=== PATIENT | female | born 1950 | race Caucasian/White ===

== ENCOUNTER → 2018-03-13 | Outpatient (CLI) | payer BC ==
[~2018-03-13] MED LIST: ASPI-515 PO; BIOT1CAP3 PO; CLOP75TA PO; FENO145T30 PO; FLAX100029 PO; FURO-93 PO; GABA300C10 PO; HYDR-3237 PO; HYDR-3653 PO; KETO10TA PO; LEVO75TA5 PO; METO25TA35 PO; METO25TA91 PO; OMEG1CAP25 PO; POTA20TA14; RAMI2.5C2 PO; REGADENOSON 0.4 MG/5 ML SYRINGE ONE; SENN1TAB28; SERT100T PO; SERT100T5 PO; SIMV10TA PO; SIMV20TA3 PO; TRAZ-136 PO
== END | disposition home or self-care (01) ==
LOC: CFH 12:28
PROVIDERS: ATTEND Internal Medicine Cardiovascular Disease
DX: I25.10 Atherosclerotic heart disease of native coronary artery without angina pectoris (principal); I10 Essential (primary) hypertension; R07.9 Chest pain, unspecified; R00.1 Bradycardia, unspecified; Z95.1 Presence of aortocoronary bypass graft
CPT/HCPCS: 78452; 93017; A9502; J2785

== ENCOUNTER 2018-04-19 09:29 | Inpatient (IN) | payer BC ==
[~2018-04-19] VITALS: Ht 167.6 cm; Wt 68.8 kg
[~2018-04-19 09:29] MED LIST changes: -REGADENOSON 0.4 MG/5 ML SYRINGE ONE; -TRAZ-136 PO; +TRAZ50TA66 PO
[2018-04-19] MEDS ORDERED: SODIUM CHLORIDE 0.9% 1,000 ML IV ONE (10:05)
[2018-04-19] MEDS ORDERED: CHOL2000 PO (10:21)
[2018-04-19] MEDS ORDERED: OMEG-123 PO (10:21)
[2018-04-19] MEDS ORDERED: CELE200C PO (10:21)
[2018-04-19] MEDS ORDERED: ALPR-475 PO (10:21)
[2018-04-19] MEDS ORDERED: PROM25TA10 PO (10:21)
[2018-04-19] MEDS: PLEASE ENTER HEIGHT AND WEIGHT MC SCH ×2 (10:30→18:30)
[2018-04-19 11:31] LABS: BASOPHILS # (AUTO) 0.01 x10^3/uL (0-0.1); BASOPHILS % (AUTO) 0 % (0-1); EOSINOPHILS # (AUTO) 0.05 x10^3/uL (0-0.4); EOSINOPHILS % (AUTO) 1 % (1-7); LYMPHOCYTES # (AUTO) 1.29 x10^3/uL (1-3.4); LYMPHOCYTES % (AUTO) 26 % (22-44); MD NO; MEAN CORPUSCULAR HEMOGLOBIN 31.6 pg (27.0-34.8); MEAN CORPUSCULAR HGB CONC 33.2 g/dL (32.4-35.8); MEAN CORPUSCULAR VOLUME 95.4 fL (80-100); MONOCYTES # (AUTO) 0.45 x10^3/uL (0.2-0.8); MONOCYTES % (AUTO) 9 % (2-9); NEUTROPHILS # (AUTO) 3.08 x10^3/uL (1.8-6.8); NEUTROPHILS % (AUTO) 63 % (42-75); PLATELET COUNT 158 x10^3/uL (130-400); RED BLOOD COUNT 4.71 x10^6/uL (3.82-5.3); RED CELL DISTRIBUTION WIDTH 14.8 % (9.6-15.2)
[2018-04-19 11:33] LABS: ANION GAP 4 mmol/L (5-15); CALCIUM 9.6 mg/dL (8.5-10.1); CHLORIDE 108 mmol/L (98-107); CREATININE 1.14 mg/dL (0.55-1.02)
[2018-04-19] MEDS ORDERED: MIDAZOLAM 1 MG/ML, 5ML ONE (11:47)
[2018-04-19] MEDS ORDERED: FENTANYL PF 100 MCG/2ML ONE (11:47)
[2018-04-19] MEDS ORDERED: HEPARIN 1,000 UNITS/ML, 10ML ONE (12:06)
[2018-04-19] MEDS ORDERED: BIVALIRUDIN 250 MG ONE ×2 (12:16→12:47)
[2018-04-19] MEDS ORDERED: TICAGRELOR 90 MG TABLET ONE (12:16)
[2018-04-19] MEDS ORDERED: BIVALIRUDIN 250 MG in DEXTROSE 5% 100 ML IV SCH (12:35)
[2018-04-19] MEDS: SODIUM CHLORIDE 0.9% 1,000 ML IV SCH ×2 (12:35→20:34)
[2018-04-19] MEDS ORDERED: ASPIRIN 325 MG TABLET EC ONE (12:38)
[2018-04-19] MEDS ORDERED: ZOLPIDEM 5MG TABLET PO PRN (13:00)
[2018-04-19] MEDS ORDERED: ONDANSETRON 2MG/ML, 2ML IVPush PRN (13:00)
[2018-04-19] MEDS ORDERED: ACETAMINOPHEN 325 MG TABLET ONE (13:04)
[2018-04-19] MEDS: ACETAMINOPHEN 325 MG TABLET PO PRN ×2 (13:07→17:58)
[2018-04-19] MEDS ORDERED: PROMETHAZINE 25MG TABLET PO PRN (15:30)
[2018-04-19 19:03] VITALS: BP 132/77
[2018-04-19 20:21] VITALS: BP 121/65
[2018-04-19] MEDS: TICAGRELOR 90 MG TABLET PO SCH (20:24)
[2018-04-19] MEDS: METOPROLOL TARTRATE 25 MG TABLET PO SCH (20:25)
[2018-04-19] MEDS ORDERED: TRAZODONE 50MG TABLET PO SCH (21:00)
[2018-04-19] MEDS ORDERED: SIMVASTATIN 20 MG TABLET PO SCH (21:00)
[2018-04-20 00:53] VITALS: BP 108/71
[2018-04-20] MEDS: PLEASE ENTER HEIGHT AND WEIGHT MC SCH (02:30)
[2018-04-20] MEDS: SODIUM CHLORIDE 0.9% 1,000 ML IV SCH (03:51)
[2018-04-20] MEDS ORDERED: LEVOTHYROXINE 50 MCG TABLET PO SCH (06:00)
[2018-04-20 07:08] LABS: ANION GAP 8 mmol/L (5-15); CALCIUM 8.6 mg/dL (8.5-10.1); CHLORIDE 109 mmol/L (98-107); CREATININE 1.23 mg/dL (0.55-1.02)
[2018-04-20] MEDS: TICAGRELOR 90 MG TABLET PO SCH (08:35)
[2018-04-20] MEDS: METOPROLOL TARTRATE 25 MG TABLET PO SCH (08:35)
[2018-04-20 08:45] VITALS: BP 126/74
[2018-04-20] MEDS ORDERED: SERTRALINE 100MG TABLET PO SCH (09:00)
[2018-04-20] MEDS ORDERED: OMEGA-3/FISH OIL CAPSULE PO SCH (09:00)
[2018-04-20] MEDS ORDERED: FENOFIBRATE 145 MG TABLET PO SCH (09:00)
[2018-04-20] MEDS ORDERED: CHOLECALCIFEROL 1,000 UNIT TABLET PO SCH (09:00)
[2018-04-20] MEDS ORDERED: ASPIRIN 81 MG TABLET EC PO SCH ×2 (09:00)
[2018-04-20] MEDS ORDERED: TICA90TA PO (09:01)
== END 2018-04-20 10:21 | disposition home or self-care (01) | DRG 247 ==
LOC: CACL 09:29 → ORIP 12:35 → 5SO 14:46 → DCLOUNGE 04-20 10:06
PROVIDERS: ADMIT Internal Medicine Cardiovascular Disease; ATTEND Internal Medicine Cardiovascular Disease
PROC: 027035Z Dilation of Coronary Artery, One Artery with Two Drug-eluting Intraluminal Devices, Percutaneous Approach (ICD-10-PCS; principal; 2018-04-19)
PROC: 4A023N7 Measurement of Cardiac Sampling and Pressure, Left Heart, Percutaneous Approach (ICD-10-PCS; 2018-04-19)
PROC: B2111ZZ Fluoroscopy of Multiple Coronary Arteries using Low Osmolar Contrast (ICD-10-PCS; 2018-04-19)
PROC: B2131ZZ Fluoroscopy of Multiple Coronary Artery Bypass Grafts using Low Osmolar Contrast (ICD-10-PCS; 2018-04-19)
PROC: B2151ZZ Fluoroscopy of Left Heart using Low Osmolar Contrast (ICD-10-PCS; 2018-04-19)
PROC: B2181ZZ Fluoroscopy of Left Internal Mammary Bypass Graft using Low Osmolar Contrast (ICD-10-PCS; 2018-04-19)
DX: I25.719 Atherosclerosis of autologous vein coronary artery bypass graft(s) with unspecified angina pectoris (principal); E03.9 Hypothyroidism, unspecified; E78.5 Hyperlipidemia, unspecified; F32.9 Major depressive disorder, single episode, unspecified; E78.00 Pure hypercholesterolemia, unspecified; F41.9 Anxiety disorder, unspecified; M79.7 Fibromyalgia; I10 Essential (primary) hypertension; R00.1 Bradycardia, unspecified; M19.90 Unspecified osteoarthritis, unspecified site; Z95.1 Presence of aortocoronary bypass graft; Z88.6 Allergy status to analgesic agent; Z88.5 Allergy status to narcotic agent; Z87.891 Personal history of nicotine dependence; Z79.899 Other long term (current) drug therapy
CPT/HCPCS: 36415; 93459; C9600; 80048; 85025; 93005; 99156; 99157; C1760; C1894; G0378; J0583; J1644; J2250; J3010; C1725; C1769; C1874; C1887; Q9967

== ENCOUNTER 2018-05-03 17:41 | Inpatient (IN) | payer MEDICARE, BC ==
[~2018-05-03] VITALS: Ht 167.6 cm; Wt 65.7 kg
[~2018-05-03 17:41] MED LIST changes: +ALPR-475 PO; +CELE200C PO; +CHOL2000 PO; +OMEG-123 PO; +PROM25TA10 PO; +TICA90TA PO
[2018-05-03] MEDS ORDERED: SODIUM CHLORIDE FLUSH 10ML SYR IVF ONE (18:30)
[2018-05-03 19:08] LABS: BASOPHILS # (AUTO) 0.05 x10^3/uL (0-0.1); BASOPHILS % (AUTO) 1 % (0-1); EOSINOPHILS # (AUTO) 0.08 x10^3/uL (0-0.4); EOSINOPHILS % (AUTO) 1 % (1-7); LYMPHOCYTES # (AUTO) 1.47 x10^3/uL (1-3.4); LYMPHOCYTES % (AUTO) 22 % (22-44); MD NO; MEAN CORPUSCULAR HEMOGLOBIN 31.1 pg (27.0-34.8); MEAN CORPUSCULAR HGB CONC 33.6 g/dL (32.4-35.8); MEAN CORPUSCULAR VOLUME 92.6 fL (80-100); MONOCYTES # (AUTO) 0.48 x10^3/uL (0.2-0.8); MONOCYTES % (AUTO) 7 % (2-9); NEUTROPHILS # (AUTO) 4.72 x10^3/uL (1.8-6.8); NEUTROPHILS % (AUTO) 69 % (42-75); PLATELET COUNT 374 x10^3/uL (130-400); RED BLOOD COUNT 3.91 x10^6/uL (3.82-5.3); RED CELL DISTRIBUTION WIDTH 16.3 % (9.6-15.2)
[2018-05-03 19:13] LABS: CHLORIDE 108 mmol/L (98-107)
[2018-05-03 19:14] LABS: ANION GAP 10 mmol/L (5-15); CALCIUM 9.3 mg/dL (8.5-10.1); CREATININE 0.96 mg/dL (0.55-1.02)
[2018-05-03 19:17] LABS: TROPONIN I < 0.015 ng/mL (0.000-0.045)
[2018-05-03 19:23] LABS: INTERNATIONAL NORMALIZED RATIO 1.13 (0.93-1.1); PROTHROMBIN TIME 11.9 Seconds (9.6-11.5)
[2018-05-03] MEDS ORDERED: ONDANSETRON 2MG/ML, 2ML ONE ×2 (19:30→22:46)
[2018-05-03] MEDS ORDERED: MORPHINE SULFATE 4 MG/ML, 1ML ONE ×2 (19:30→22:45)
[2018-05-03] MEDS ORDERED: SODIUM CHLORIDE FLUSH 10ML SYR IVF PRN (20:00)
[2018-05-03 22:34] VITALS: BP 148/84
[2018-05-03] MEDS ORDERED: ONDANSETRON 2MG/ML, 2ML IVPush PRN ×2 (23:00)
[2018-05-03] MEDS ORDERED: hydrALAzine 20 MG/ML, 1ML IVPush PRN (23:00)
[2018-05-03] MEDS ORDERED: DOCUSATE 100 MG CAPSULE PO PRN (23:00)
[2018-05-03] MEDS ORDERED: PROMETHAZINE 25 MG/ML, 1ML IM PRN (23:00)
[2018-05-03] MEDS ORDERED: NITROGLYCERIN 0.4 MG BOTTLE (25 TABS) SL PRN (23:00)
[2018-05-03] MEDS ORDERED: POLYETHYLENE GLYCOL 17 GM PACKET PO PRN (23:00)
[2018-05-03] MEDS ORDERED: ONDANSETRON ODT 4 MG PO PRN (23:00)
[2018-05-03] MEDS ORDERED: BISACODYL 10 MG SUPP PR PRN (23:00)
[2018-05-03] MEDS ORDERED: GABAPENTIN 300 MG CAPSULE PO PRN (23:00)
[2018-05-03] MEDS ORDERED: CYCLOBENZAPRINE 10 MG TABLET PO PRN (23:00)
[2018-05-03] MEDS ORDERED: MORPHINE SULFATE 4 MG/ML, 1ML IVPush PRN (23:00)
[2018-05-03] MEDS ORDERED: HYDROmorphone 2 MG/ML, 1ML IVPush PRN (23:00)
[2018-05-03] MEDS ORDERED: LABETALOL 5MG/ML, 20ML IVPush PRN (23:00)
[2018-05-03] MEDS: METOPROLOL TARTRATE 25 MG TABLET PO SCH (23:30)
[2018-05-03] MEDS ORDERED: PROMETHAZINE 25MG TABLET PO PRN (23:30)
[2018-05-03] MEDS ORDERED: OMNIPAQUE 350 MG/ML, 100ML BOTTLE ONE (23:34)
[2018-05-03 23:36] LABS: FREE T4 (FREE THYROXINE) 1.27 ng/dL (0.76-1.46); TROPONIN I < 0.015 ng/mL (0.000-0.045)
[2018-05-04 00:05] LABS: HEMOGLOBIN A1C 5.1 % (4.2-6.3)
[2018-05-04 00:34] VITALS: BP 123/68
[2018-05-04] MEDS: TICAGRELOR 90 MG TABLET PO SCH ×3 (00:41→20:39)
[2018-05-04] MEDS: TRAZODONE 50MG TABLET PO SCH ×2 (00:42→20:39)
[2018-05-04] MEDS: SIMVASTATIN 20 MG TABLET PO SCH ×2 (00:42→20:39)
[2018-05-04] MEDS: HEPARIN 5,000 UNITS/ML, 1ML SQ SCH ×3 (00:42→16:27)
[2018-05-04] MEDS: ISOSORBIDE MONONITRATE ER 30 MG TABLET PO SCH ×2 (00:42→10:41)
[2018-05-04] MEDS: SODIUM CHLORIDE 0.9% 1,000 ML IV SCH ×2 (00:44→20:40)
[2018-05-04 02:19] LABS: TROPONIN I < 0.015 ng/mL (0.000-0.045)
[2018-05-04 05:25] LABS: BASOPHILS # (AUTO) 0.03 x10^3/uL (0-0.1); BASOPHILS % (AUTO) 0 % (0-1); EOSINOPHILS # (AUTO) 0.15 x10^3/uL (0-0.4); EOSINOPHILS % (AUTO) 2 % (1-7); LYMPHOCYTES # (AUTO) 1.55 x10^3/uL (1-3.4); LYMPHOCYTES % (AUTO) 24 % (22-44); MD NO; MEAN CORPUSCULAR HEMOGLOBIN 31.1 pg (27.0-34.8); MEAN CORPUSCULAR HGB CONC 33.1 g/dL (32.4-35.8); MEAN CORPUSCULAR VOLUME 93.8 fL (80-100); MEAN PLATELET VOLUME 7.2 fL (7.4-10.4); MONOCYTES # (AUTO) 0.45 x10^3/uL (0.2-0.8); MONOCYTES % (AUTO) 7 % (2-9); NEUTROPHILS # (AUTO) 4.29 x10^3/uL (1.8-6.8); NEUTROPHILS % (AUTO) 66 % (42-75); PLATELET COUNT 405 x10^3/uL (130-400); RED BLOOD COUNT 3.71 x10^6/uL (3.82-5.3); RED CELL DISTRIBUTION WIDTH 16.9 % (9.6-15.2)
[2018-05-04 05:27] LABS: ALANINE AMINOTRANSFERASE 29 U/L (12-78); ALBUMIN 2.9 g/dL (3.4-5.0); ANION GAP 7 mmol/L (5-15); CHLORIDE 108 mmol/L (98-107); CHOLESTEROL, TOTAL 107 mg/dL (140-239); CREATININE 1.06 mg/dL (0.55-1.02)
[2018-05-04 05:31] LABS: ALKALINE PHOSPHATASE 74 U/L (45-117); BILIRUBIN,TOTAL 1.7 mg/dL (0.2-1.0); CHOL/HDL RATIO 4.3; HDL CHOL % 23 % (28-40); HDL CHOLESTEROL (DIRECT) 25 mg/dL (40-60); LDL CHOLESTEROL,CALCULATED 60 mg/dL (54-169); LDL/HDL RATIO 2.4 (0.5-3.0); TOTAL PROTEIN 6.6 g/dL (6.4-8.2); TRIGLYCERIDES 108 mg/dL (50-200); TROPONIN I < 0.015 ng/mL (0.000-0.045); VLDL CHOLESTEROL 22 mg/dL (0-25)
[2018-05-04] MEDS ORDERED: ASPIRIN 325 MG TABLET EC PO SCH (06:00)
[2018-05-04 07:35] VITALS: BP 98/60
[2018-05-04 08:42] LABS: TROPONIN I < 0.015 ng/mL (0.000-0.045)
[2018-05-04] MEDS: SERTRALINE 100MG TABLET PO SCH (10:40)
[2018-05-04] MEDS: FENOFIBRATE 145 MG TABLET PO SCH (10:40)
[2018-05-04] MEDS: METOPROLOL TARTRATE 25 MG TABLET PO SCH ×2 (10:40→20:33)
[2018-05-04] MEDS: LEVOTHYROXINE 50 MCG TABLET PO SCH (10:40)
[2018-05-04] MEDS: ACETAMINOPHEN 325 MG TABLET PO PRN ×2 (10:41→20:58)
[2018-05-04] MEDS: CHOLECALCIFEROL 1,000 UNIT TABLET PO SCH (10:41)
[2018-05-04] MEDS: ASPIRIN 81 MG TABLET EC PO SCH (10:41)
[2018-05-04 13:27] VITALS: BP 108/55
[2018-05-04 19:37] VITALS: BP 101/59
[2018-05-05 00:36] VITALS: BP 101/59
[2018-05-05] MEDS: HEPARIN 5,000 UNITS/ML, 1ML SQ SCH ×2 (01:09→09:41)
[2018-05-05 05:53] LABS: BASOPHILS # (AUTO) 0.02 x10^3/uL (0-0.1); BASOPHILS % (AUTO) 0 % (0-1); EOSINOPHILS # (AUTO) 0.13 x10^3/uL (0-0.4); EOSINOPHILS % (AUTO) 3 % (1-7); LYMPHOCYTES # (AUTO) 1.23 x10^3/uL (1-3.4); LYMPHOCYTES % (AUTO) 24 % (22-44); MD NO; MEAN CORPUSCULAR HEMOGLOBIN 31.3 pg (27.0-34.8); MEAN CORPUSCULAR HGB CONC 33.4 g/dL (32.4-35.8); MEAN CORPUSCULAR VOLUME 93.6 fL (80-100); MONOCYTES # (AUTO) 0.37 x10^3/uL (0.2-0.8); MONOCYTES % (AUTO) 7 % (2-9); NEUTROPHILS # (AUTO) 3.31 x10^3/uL (1.8-6.8); NEUTROPHILS % (AUTO) 65 % (42-75); PLATELET COUNT 302 x10^3/uL (130-400); RED BLOOD COUNT 3.32 x10^6/uL (3.82-5.3); RED CELL DISTRIBUTION WIDTH 17.2 % (9.6-15.2)
[2018-05-05 05:54] LABS: ANION GAP 5 mmol/L (5-15); CALCIUM 8.9 mg/dL (8.5-10.1); CHLORIDE 113 mmol/L (98-107); CREATININE 0.79 mg/dL (0.55-1.02)
[2018-05-05 07:29] VITALS: BP 120/60
[2018-05-05] MEDS: TICAGRELOR 90 MG TABLET PO SCH (09:42)
[2018-05-05] MEDS: ISOSORBIDE MONONITRATE ER 30 MG TABLET PO SCH (09:42)
[2018-05-05] MEDS: ASPIRIN 81 MG TABLET EC PO SCH (09:42)
[2018-05-05] MEDS: CHOLECALCIFEROL 1,000 UNIT TABLET PO SCH (09:42)
[2018-05-05] MEDS: FENOFIBRATE 145 MG TABLET PO SCH (09:42)
[2018-05-05] MEDS: METOPROLOL TARTRATE 25 MG TABLET PO SCH (09:42)
[2018-05-05] MEDS: SERTRALINE 100MG TABLET PO SCH (09:42)
[2018-05-05] MEDS: LEVOTHYROXINE 50 MCG TABLET PO SCH (09:53)
[2018-05-05] MEDS ORDERED: ISOS30TA8 PO (11:49)
[2018-05-05 12:48] VITALS: BP 111/64
== END 2018-05-05 13:49 | disposition home or self-care (01) | DRG 303 ==
LOC: ED 18:12 → EDIP 20:00 → 5SO 21:16 → DCLOUNGE 05-05 13:25
PROVIDERS: ADMIT Internal Medicine; ATTEND Internal Medicine
DX: I25.110 Atherosclerotic heart disease of native coronary artery with unstable angina pectoris (principal); E44.0 Moderate protein-calorie malnutrition; N17.9 Acute kidney failure, unspecified; I27.20 Pulmonary hypertension, unspecified; F32.9 Major depressive disorder, single episode, unspecified; E78.5 Hyperlipidemia, unspecified; I10 Essential (primary) hypertension; E11.9 Type 2 diabetes mellitus without complications; E03.9 Hypothyroidism, unspecified; Z82.49 Family history of ischemic heart disease and other diseases of the circulatory system; Z87.891 Personal history of nicotine dependence; Z95.1 Presence of aortocoronary bypass graft; Z83.3 Family history of diabetes mellitus; Z82.3 Family history of stroke; Z95.5 Presence of coronary angioplasty implant and graft; Z88.5 Allergy status to narcotic agent; Z68.23 Body mass index [BMI] 23.0-23.9, adult
CPT/HCPCS: 36415; 71045; 71275; 80048; 80053; 80061; 82040; 83036; 83735; 84439; 84443; 84484; 85025; 85610; 85730; 93005; 99285; G0378; J1644; J2405; Q9967; J7030

== ENCOUNTER 2018-11-21 09:04 | Outpatient (CLI) | payer BC ==
[~2018-11-21 09:04] MED LIST changes: +ISOS30TA8 PO; +SERT100T32 PO; -SERT100T5 PO
== END 2018-11-21 23:59 | disposition home or self-care (01) ==
LOC: CFH 09:04
PROVIDERS: ATTEND Nurse Practitioner
DX: Z12.31 Encounter for screening mammogram for malignant neoplasm of breast (principal); M81.0 Age-related osteoporosis without current pathological fracture; N95.9 Unspecified menopausal and perimenopausal disorder; I10 Essential (primary) hypertension
CPT/HCPCS: 77080; 77067

== ENCOUNTER 2018-11-28 09:51 | Outpatient (CLI) | payer BC | END 2018-11-28 23:59 | disposition home or self-care (01) | LOC: CFH 09:51 | PROVIDERS: ATTEND Nurse Practitioner | DX: M48.02 Spinal stenosis, cervical region (principal); M51.24 Other intervertebral disc displacement, thoracic region; M47.812 Spondylosis without myelopathy or radiculopathy, cervical region; M12.88 Other specific arthropathies, not elsewhere classified, other specified site | CPT/HCPCS: 72141; 72146 ==

== ENCOUNTER 2018-12-27 08:20 | Outpatient (CLI) | payer BC | END 2018-12-27 23:59 | disposition home or self-care (01) | LOC: CFH 08:20 | PROVIDERS: ATTEND Registered Nurse | DX: M51.17 Intervertebral disc disorders with radiculopathy, lumbosacral region (principal); M41.86 Other forms of scoliosis, lumbar region; M50.123 Cervical disc disorder at C6-C7 level with radiculopathy; M48.061 Spinal stenosis, lumbar region without neurogenic claudication; M48.02 Spinal stenosis, cervical region; M25.78 Osteophyte, vertebrae | CPT/HCPCS: 72050; 72110; 72148 ==

== ENCOUNTER → 2019-03-28 | Outpatient (CLI) | payer BC ==
[~2019-03-28] MED LIST changes: -ALPR-475 PO; +ALPR0.5T7 PO; +SENN1TAB; -SENN1TAB28
[2019-03-28 09:36] LABS: CHLORIDE 110 mmol/L (98-107)
[2019-03-28 09:48] LABS: ALANINE AMINOTRANSFERASE 31 U/L (12-78); ALBUMIN 3.8 g/dL (3.4-5.0); ALKALINE PHOSPHATASE 71 U/L (45-117); ANION GAP 5 mmol/L (5-15); BILIRUBIN,TOTAL 0.7 mg/dL (0.2-1.0); CALCIUM 9.3 mg/dL (8.5-10.1); CHOL/HDL RATIO 2.9; CHOLESTEROL, TOTAL 136 mg/dL (140-239); CREATININE 1.12 mg/dL (0.55-1.02); HDL CHOL % 35 % (28-40); HDL CHOLESTEROL (DIRECT) 47 mg/dL (40-60); LDL CHOLESTEROL,CALCULATED 70 mg/dL (54-169); LDL/HDL RATIO 1.5 (0.5-3.0); TOTAL PROTEIN 7.1 g/dL (6.4-8.2); TRIGLYCERIDES 97 mg/dL (50-200); VLDL CHOLESTEROL 19 mg/dL (0-25)
== END | disposition home or self-care (01) ==
LOC: CFH 08:47
PROVIDERS: ATTEND Internal Medicine Cardiovascular Disease
DX: E03.9 Hypothyroidism, unspecified (principal); R73.01 Impaired fasting glucose; I10 Essential (primary) hypertension; Z87.891 Personal history of nicotine dependence; Z88.5 Allergy status to narcotic agent
CPT/HCPCS: 36415; 80053; 80061; 83036

== ENCOUNTER 2019-04-17 12:48 | Outpatient (CLI) | payer BC | END 2019-04-17 23:59 | disposition home or self-care (01) | LOC: CFH 12:48 | PROVIDERS: ATTEND Internal Medicine Cardiovascular Disease | DX: I08.8 Other rheumatic multiple valve diseases (principal); I10 Essential (primary) hypertension | CPT/HCPCS: 93306 ==

== ENCOUNTER 2020-07-25 08:58 | Outpatient (CLI) | payer MEDICARE, BC ==
[~2020-07-25 08:58] MED LIST changes: -ASPI-515 PO; +ASPI-963 PO; +FENO145T19 PO; -FENO145T30 PO; -RAMI2.5C2 PO; +RAMI2.5C49 PO; +SIMV20TA19 PO; -SIMV20TA3 PO
== END 2020-07-25 23:59 | disposition home or self-care (01) ==
LOC: CFH 08:58
PROVIDERS: ATTEND Nurse Practitioner
DX: M81.0 Age-related osteoporosis without current pathological fracture (principal); Z78.0 Asymptomatic menopausal state
CPT/HCPCS: 77080